=== PATIENT | female | born 1990 | race Caucasian/White ===

== ENCOUNTER 2020-02-07 19:52 | Emergency (ER) | payer SELFPAY ==
[~2020-02-07 19:52] MED LIST: Iopamidol 370 76% 100 ML VIAL ONE
[2020-02-07] MEDS ORDERED: Morphine 4 MG/ML VIAL ONE (20:26)
[2020-02-07] MEDS ORDERED: Ondansetron PF 4 MG/2 ML Vial ONE (20:27)
[2020-02-07 20:31] LABS: Bilirubin Negative (Negative); Blood, Urine Negative (Negative); Clarity Clear (Clear); Glucose, Urine (Dipstick) Normal (Negative); Leukocyte Negative Leu/uL (Negative); Nitrite Negative (Negative); Pregnancy Test - Urine (BHCG) Negative (Negative); Pregu Control Background? CLEAR/WHITE (CLR/WHITE); Pregu Control Bar Appear? YES (CONTROL BAR); Protein, Urine (Dipstick) Negative (Neg-Trace); Specific Gravity 1.019 (1.002-1.036); Urobilinogen Normal mg/dL (Less than 2)
[2020-02-07 20:33] LABS: #Basophils 0.1 thou/uL (0.0-0.2); #Eosinphils 0.1 thou/uL (0.0-0.7); #Lymphocytes 3.8 thou/uL (1.20-3.40); #Monocytes 0.7 thou/uL (0.11-0.59); #Neutrophils 6.1 thou/uL (1.40-6.50); %Basophils 0.9 % (0.0-1.0); %Eosinophils 0.8 % (0.0-10.0); %Monocytes 6.4 % (0.0-10.0); %Neutrophils 56.8 % (42.0-75.0); Hemoglobin 10.6 g/dL (12.0-16.0); Mean Corpuscular HGB CONC 32.9 g/dL (32.0-36.0); Mean Corpuscular Hemoglobin 24.3 pg (27.0-31.0); Mean Corpuscular Volume 73.8 fL (78.0-98.0); Mean Platelet Volume 9.3 fL (7.4-10.4); Platelet Count 276 thou/uL (130-400); RBC Distribution Width 15.5 % (11.5-14.5); Red Blood Cell (RBC) Count 4.38 mill/uL (4.20-5.40); White Blood Cell (WBC) Count 10.8 thou/uL (4.8-10.8)
[2020-02-07 20:46] LABS: BHCG - Serum Negative (NEGATIVE); Pregs Control Background? CLEAR/WHITE (CLR/WHITE); Pregs Control Bar Appear? YES (CONTROL BAR)
[2020-02-07 20:47] LABS: MDiff Complete? YES; Microcytosis SLIGHT = 6-15 cells (100X) (0-5/hpf); Platelet Morphology Comment Appears Adequate
[2020-02-07 20:55] LABS: ALT (SGPT) 12 U/L (8-55); AST (SGOT) 16 U/L (5-34); Albumin 4.1 g/dL (3.5-5.0); Alkaline Phosphatase 66 U/L (40-110); Anion Gap 12 mmol/L (10-20); BUN (Urea Nitrogen) 10 mg/dL (7.0-18.7); Bilirubin, Total 0.3 mg/dL (0.2-1.2); Calc. Creatinine Clearance 0 mL/min (70-130); Calcium 8.9 mg/dL (7.8-10.44); Carbon Dioxide 24 mmol/L (22-29); Chloride 104 mmol/L (98-107); Estimated GFR-MDRD 87; Globulin 2.9 g/dL (2.4-3.5); Glucose 93 mg/dL (70-105); Lipase 18 U/L (8-78); Potassium 4.1 mmol/L (3.5-5.1); Sodium 136 mmol/L (136-145)
--- NOTE | 2020-02-07 21:07 | CT ---
CT ABDOMEN AND PELVIS WITH IV CONTRAST: Date: 02-07-2020 Provided Clinical History: Abdominal pain. FINDINGS: Visualized lung bases are clear of significant opacity. The solid abdominal organs demonstrate an unremarkable CT appearance. No bowel dilatation, inflammatory fat stranding, free fluid, or free air apparent. Changes of prior a ppendectomy are demonstrated. The regional major vascular structures appear unremarkable. The osseous structures demonstrate no concerning lytic or blastic lesions. IMPRESSION: No evidence for an acute process. POS: EVA
--- NOTE | 2020-02-07 22:18 | ULT ---
TRANSABDOMINAL AND TRANSVAGINAL PELVIC ULTRASOUND WITH DOPPLER: Date: 02-07-2020 Provided Clinical History: Right lower quadrant pain. FINDINGS: The uterus measures about 10.1 x 4.2 x 4.7 cm and demonstrates a normal sonographic appearance. Right and left ovaries appear sonographically normal. Color doppler and spectral analysis of the ovar jose francisco waveforms demonstrate normal flow bilaterally. There is no evidence for free pelvic fluid. IMPRESSION: No evidence for an acute process. POS: EVA
== END 2020-02-07 22:58 | disposition home or self-care (01) ==
LOC: MERGE 19:52 → ERS 19:52
DX: R10.31 Right lower quadrant pain (principal); F41.9 Anxiety disorder, unspecified; F32.9 Major depressive disorder, single episode, unspecified; Z79.899 Other long term (current) drug therapy
CPT/HCPCS: 74177; 76856; 80053; 81003; 81025; 83690; 84703; 85025; 93976; 96361; 96374; 96375; J2270; J2405; Q9967